=== PATIENT | female | born 1945 | race Caucasian/White ===

== ENCOUNTER 2018-09-29 12:53 | Outpatient (CLI) | payer MEDICARE ==
[~2018-09-29 12:53] MED LIST: Gadobenate Dimeglumine 529 MG/1 ML (20ML VIAL) ONE
--- NOTE | 2018-09-29 17:01 | MRI ---
MRI CERVICAL SPINE: History: M54.12 worsening shoulder and neck pain. Technique: Multiplanar, multisequence noncontrast enhanced MRI images cervical spine obtained. Comparison: 02-26-15 FINDINGS: The spinal cord is unremarkable but no evidence of cord, masses, or lesions. C1-2: Unremarkable. C2-3: Unremarkable. C3-4: Unremarkable. C4-5: There is mild disc desiccation. There is a mild broad based disc osteophyte complex centrally, minimally but not significantly compressing the thecal sac. The neural foramen are patent. C5-6: There is some disc desiccation. There is a broad based disc osteophyte complex centrally result ing in minimal but not significant compression of the thecal sac. The neural foramen are patent. C6-7: Unremarkable except for a subtle left C6-7 paracentral mild disc bulge. No significant thecal s ac or nerve root compression is seen. C7-T1: Unremarkable. IMPRESSION: Minimal midcervical broad based disc bulge and disc desiccation. No significant evidence of central o r neural foraminal narrowing seen. POS: C
--- NOTE | 2018-09-29 18:47 | MRI ---
MRI THORACIC SPINE WITHOUT CONTRAST: 09/29/18 HISTORY: Mid thoracic spine pain. The pain is chronic. Symptoms are worsening. COMPARISON: None. TECHNIQUE: Thoracic spine MRI is performed without intravenous gadolinium administration. Multisequential, multi planar imaging is performed. FINDINGS: Appropriate T1 marrow signal intensity of the thoracic vertebrae. Thoracic spine vertebral body heigh t is maintained. There is no fracture. There is intrinsic T1 heterogeneous signal intensity with asso ciated T2 and STIR hyperintensity at the T8 level. An atypical hemangioma is favored. This lesion is present in 2011 but has slightly increased in size. No evidence of vertebral body fracture. No signif icant STIR hyperintensity to suggest edema or ligamentous injury. The visualized mediastinal structures are unremarkable. There are dependent atelectatic changes in th e lung parenchyma. Visualized solid organs are also unremarkable. The thoracic cord has a normal size and signal intensity. No cord expansion. No cord malacia. No T2 h yperintensity in the cord. The conus medullaris is not included on this exam. Please refer to a lumba r spine MRI from 02/26/15 for details in terms of the conus. T1-T2 through T4-T5, no significant central canal stenosis. T5-T6, small right paracentral disc bulge. No significant central canal stenosis. T6-T7 through T12-L1, no significant central canal stenosis. Throughout the thoracic spine, the neural foramina are patent. IMPRESSION: 1. No significant central canal stenosis or foraminal narrowing. There is degenerative disease a t T5-T6 as described above. 2. Low lying conus medullaris. Refer to previous lumbar spine MRI for further detail. 3. Interval increase in size of an atypical hemangioma at the T8 vertebral body level. POS: [facility]
--- NOTE | 2018-09-29 19:01 | RAD ---
FOUR VIEWS LUMBAR SPINE: 09/29/18 COMPARISON: None. HISTORY: Bilateral lower extremity radiculopathy. FINDINGS: Posterior elements are incomplete at L5 and S1 suggesting prior surgery and/or congenital abnormality . The posterior elements also appear partially incomplete at L4. No anterolisthesis of retrolisthesis is noted on the lateral neutral flexion or extension imaging. No acute fracture. IMPRESSION: Chronic findings as detailed above. No acute findings are seen. POS: [facility]
--- NOTE | 2018-09-29 19:08 | RAD ---
RADIOGRAPH CERVICAL SPINE 6 VIEWS: 09/29/18 Attention Rita in barrera: this is a 6 view study HISTORY: 73-year-old female with cervical radiculopathy, M54.12. TECHNIQUE: Three lateral views in neutral, flexion, and extension. Open mouth, Fuchs, and AP views. FINDINGS: The vertebral body heights are maintained. There is mild disc space narrowing at C3-4 and C4-5. The r est of the disc spaces are maintained. There is a grade I anterolisthesis of C6 on C7 on the neutral lateral view which does not significantly change with flexion or extension. There are minimal or mild degenerative changes at the bilateral atlanto-axial joints. No prevertebral soft tissue swelling. Ra nge of motion during extension is not full. IMPRESSION: 1. Mild discogenic degenerative changes at C4-5 and C5-6. 2. Mild grade I spondylolisthesis at C6-7, presumably due to facet osteoarthrosis, without insta bility. KARRIE [] POS: [facility]
--- NOTE | 2018-09-29 20:18 | MRI ---
MRI LUMBAR SPINE WITH AND WITHOUT CONTRAST: 09/29/18 COMPARISON: 02/26/15 HISTORY: Lumbar radiculopathy, chronic low back pain with bilateral lower extremity radiculopathy. TECHNIQUE: Multiplanar and multisequence MR imaging of the lumbar spine provided with and without contrast. FINDINGS: The sagittal STIR imaging demonstrates no focal area of osseous marrow edema. There is no anterolisthesis or retrolisthesis noted within the lumbar spine. As seen on the prior examination, the filum terminale is thickened and the conus medullaris terminate s abnormally low near the L3-4 level consistent with the provided history of tethered cord. As seen on the prior examination, the posterior elements are incomplete at the L5 and S1 levels which may be on the basis of prior surgery and/or congenital spina bifida. T12-L1: Intervertebral disc height and signal intensity grossly unremarkable. Minimal disc bulge with no central canal or neural foraminal stenosis. Stable small perineural sleeve cyst noted on the righ t. L1-2: No central canal or neural foraminal stenosis. L2-3: There is mild disc space narrowing and disc desiccation with mild disc bulge causing no central canal stenosis. Mild bilateral facet hypertrophy with no significant neural foraminal stenosis on ei ther side. L3-4: Mild bilateral facet hypertrophy. There is disc desiccation and minimal disc bulge with no sign ificant central canal or neural foraminal stenosis. L4-5: There is disc space narrowing and mild disc bulge with no central canal stenosis. There is mild bilateral facet hypertrophy with no significant neural foraminal stenosis. L5-S1: There is disc space narrowing and desiccation with mild disc bulge. No significant central can al stenosis. There is right lateral osteophyte formation. There is mild bilateral neural foraminal st enosis, right greater than left, unchanged when compared to the prior exam. The imaged retroperitoneal structures appear grossly unremarkable. There is fatty infiltration of the filum terminale at the L4 level, a stable finding. Postcontrast imaging is provided, demonstrating no abnormal enhancement involving the contents of the thecal sac, the vertebral bodies, or the intervertebral discs. There has been no appreciable change when compared to the 2015 exam. IMPRESSION: Stable MRI of the lumbar spine with and without contrast as detailed above. POS: [facility]
== END 2018-09-29 12:54 | disposition home or self-care (01) ==
LOC: BICMRI 12:53
PROVIDERS: ATTEND Surgery
DX: M47.22 Other spondylosis with radiculopathy, cervical region (principal); M51.16 Intervertebral disc disorders with radiculopathy, lumbar region; M50.10 Cervical disc disorder with radiculopathy, unspecified cervical region; M43.12 Spondylolisthesis, cervical region; M48.061 Spinal stenosis, lumbar region without neurogenic claudication; M48.07 Spinal stenosis, lumbosacral region; M47.26 Other spondylosis with radiculopathy, lumbar region; M47.814 Spondylosis without myelopathy or radiculopathy, thoracic region
CPT/HCPCS: 72050; 72120; 72141; 72146; 72158; 82565; A9579

== ENCOUNTER 2019-06-21 15:15 | Outpatient (CLI) | payer MEDICARE ==
--- NOTE | 2019-06-21 15:42 | MMO ---
Bilateral MAMMO Bilat Screen [facility]. CLINICAL HISTORY: Patient is 73 years old and is seen for screening. The patient has no family history of breast cancer. The patient has no personal history of cancer. The patient has a history of bilateral Explantation in 2009 - benign - Had saline/silcon implant from 39-63 (). On. VIEWS: The views performed were: bilateral craniocaudal with tomosynthesis and bilateral mediolateral oblique with tomosynthesis. FILMS COMPARED: The present examination has been compared to prior imaging studies performed at [facility] on 02/01/2012, 07/23/2014 and 11/26/2016, and at [facility] on 05/30/2010. MAMMOGRAM FINDINGS: There are scattered fibroglandular densities. There are vascular calcifications seen in both breasts. Nodularity is stable. There are no suspicious masses, suspicious calcifications, or new areas of architectural distortion. IMPRESSION: THERE IS NO MAMMOGRAPHIC EVIDENCE OF MALIGNANCY. A ROUTINE FOLLOW-UP MAMMOGRAM IN 1 YEAR IS RECOMMENDED. THE RESULTS OF THIS EXAM WERE SENT TO THE PATIENT. ACR BI-RADS Category 2 - Benign finding MAMMOGRAPHY NOTE: 1. A negative mammogram report should not delay a biopsy if a dominant of clinically suspicious mass is present. 2. Approximately 10% to 15% of breast cancers are not detected by mammography. 3. Adenosis and dense breasts may obscure an underlying neoplasm. Reported by: ALONZO GRAVES MD Electonically Signed: [id number]
== END 2019-06-21 15:16 | disposition home or self-care (01) ==
LOC: BICMAMMO 15:15
PROVIDERS: ATTEND Family Medicine
DX: Z12.31 Encounter for screening mammogram for malignant neoplasm of breast (principal)
CPT/HCPCS: 77063; 77067

== ENCOUNTER 2020-03-21 09:52 | Observation (INO) | payer MEDICARE ==
[2020-03-21 10:13] LABS: #Basophils 0.1 thou/uL (0.0-0.2); #Eosinphils 0.3 thou/uL (0.0-0.7); #Lymphocytes 3.1 thou/uL (1.20-3.40); #Monocytes 0.5 thou/uL (0.11-0.59); #Neutrophils 3.2 thou/uL (1.40-6.50); %Basophils 1.1 % (0.0-1.0); %Eosinophils 3.9 % (0.0-10.0); %Lymphocytes 42.9 % (21.0-51.0); %Monocytes 7.2 % (0.0-10.0); %Neutrophils 44.9 % (42.0-75.0); Hemoglobin 13.6 g/dL (12.0-16.0); Mean Corpuscular HGB CONC 31.9 g/dL (32.0-36.0); Mean Corpuscular Hemoglobin 31.3 pg (27.0-31.0); Mean Corpuscular Volume 98.1 fL (78.0-98.0); Mean Platelet Volume 6.7 fL (7.4-10.4); Platelet Count 349 thou/uL (130-400); RBC Distribution Width 12.3 % (11.5-14.5); Red Blood Cell (RBC) Count 4.35 mill/uL (4.20-5.40); White Blood Cell (WBC) Count 7.1 thou/uL (4.8-10.8)
[2020-03-21] MEDS ORDERED: Nitroglycerin 0.4 MG TAB 1 EACH ONE (10:23)
[2020-03-21] MEDS ORDERED: Aspirin Chewable 81 MG TAB ONE (10:23)
[2020-03-21 10:35] LABS: ALT (SGPT) 11 U/L (8-55); AST (SGOT) 16 U/L (5-34); Albumin 4.5 g/dL (3.4-4.8); Alkaline Phosphatase 50 U/L (40-110); Anion Gap 14 mmol/L (10-20); BUN (Urea Nitrogen) 21 mg/dL (9.8-20.1); Bilirubin, Total 0.5 mg/dL (0.2-1.2); Calc. Creatinine Clearance 0 mL/min (70-130); Calcium 9.9 mg/dL (7.8-10.44); Carbon Dioxide 26 mmol/L (23-31); Chloride 104 mmol/L (98-107); Estimated GFR-MDRD 41; Globulin 2.9 g/dL (2.4-3.5); Glucose 99 mg/dL (83-110); Potassium 3.7 mmol/L (3.5-5.1); Protein, Total 7.4 g/dL (6.0-8.3); Sodium 140 mmol/L (136-145)
[2020-03-21 12:27] VITALS: BMI 22.6
--- NOTE | 2020-03-21 13:25 | RAD ---
PORTABLE CHEST ONE VIEW: 03/21/20 at 10:12 a.m. HISTORY: Chest pain. COMPARISON: 09/12/17. The heart size is normal. The aorta is tortuous. The lungs are well expanded without lobar consolidat ion, pneumothoraces, or pleural effusions. There are postop changes of left rotator cuff repair. IMPRESSION: No acute process. POS: RAKELA
[2020-03-21] MEDS ORDERED: Ondansetron ODT 4 MG TAB PO PRN (14:09)
[2020-03-21] MEDS ORDERED: Acetaminophen 500 MG TAB PO PRN (14:09)
[2020-03-21] MEDS ORDERED: Fluticasone Propionate Nasal Spray 16 gm Bottle NASAL PRN (14:09)
[2020-03-21] MEDS ORDERED: Ondansetron PF 4 MG/2 ML Vial IVP PRN (14:09)
[2020-03-21] MEDS ORDERED: hydrALAZINE 20 MG/ML VIAL SLOW IVP PRN (14:09)
[2020-03-21 14:27] LABS: Troponin I 0.011 ng/mL (< 0.028)
[2020-03-21] MEDS: Sodium Chloride 0.9% 1,000 ML IV SCH (15:35)
[2020-03-21] MEDS ORDERED: Communication Order-Pharmacy FS SCH (16:30)
[2020-03-21 16:32] LABS: Troponin I Less than 0.010 ng/mL (< 0.028)
--- NOTE | 2020-03-21 17:14 | CON ---
DATE OF CONSULTATION: 03/21/2020 REASON FOR CONSULTATION: Chest pain. HISTORY OF PRESENT ILLNESS: Ms. Pradhan is a very pleasant 74-year-old white female, who comes to the hospital for chest pain. She has been noticing worsening chest pain for the past three months. She has noticed it for 3 months now; however, has been getting a lot more frequent recently and it is now accompanied with shortness of breath, especially when she exerts herself. She has a history of fibromyalgia, but she knows her chronic pain as she has had this for 30 years and she does not feel that this is related to her fibromyalgia. She is currently pain free. Toward the end of my evaluation, on my physical exam, she started having chest tightness again. So far, her troponins have been negative. PAST MEDICAL HISTORY: 1. Fibromyalgia. 2. Hyperlipidemia. PAST SURGICAL HISTORY: 1. Back surgery. 2. Eye surgery. 3. Left rotator cuff repair. 4. Breast implants, status post removal. 5. Left knee surgery. 6. Right heel surgery. 7. Appendectomy. SOCIAL HISTORY: 1. Social alcohol use. 2. No drug use. No tobacco. OUTPATIENT MEDICATIONS: 1. Trazodone 100 mg a day in the evening. 2. Naproxen 500 mg twice a day. 3. Vitamin D3. ALLERGIES: NO KNOWN DRUG ALLERGIES. REVIEW OF SYSTEMS: A 12-point review of systems was done and was all negative unless stated in the history of present illness. PHYSICAL EXAMINATION: VITAL SIGNS: Temperature 98.4, pulse 71, respiratory rate 14, saturating 99% on room air, and blood pressure 140/65. GENERAL: Awake, alert, and oriented x3. No distress. HEENT: Normocephalic and atraumatic. NECK: Supple. LUNGS: Clear. CARDIOVASCULAR: S1 and S2. No S3 or S4. No murmurs. ABDOMEN: Soft. Positive bowel sounds. EXTREMITIES: No edema. SKIN: Warm and dry. LABORATORY DATA: Laboratory work was reviewed. CBC with a white count of 7.1, hemoglobin of 13, hematocrit of 42, and platelet count of 349. Chemistries were reviewed, only apparent is BUN of 21, creatinine 1.28, but GFR is 41. Troponin is negative x2. BNP of 31. Normal electrolytes. EKG was reviewed. ASSESSMENT: 1. Ongoing chest pain. 2. History of fibromyalgia. 3. Shortness of breath with exertion. PLAN: 1. At this point, she has ongoing chest pain. Even if her stress tests were negative, she will most likely continue to have pain and will need highest level of risk stratification. I would recommend proceeding with a heart catheterization at this point. I spoke with Ms. Pradhan at length about the risks and benefits of the procedure. Risks included, but not limited to stroke, [place], , bleeding and need for blood transfusion, limb loss, organ loss. She verbalized understanding of this and agrees to proceed. Her daughter is in the room with her, , and she also agrees to proceed. We spoke about conscious sedation as well. We also spoke about drug-eluting versus bare-metal stenting, and we will do a femoral approach. 2. Continue plans to do echocardiogram. 3. We will cancel stress test. 4. Further recommendations per results of coronary angiogram, which we will perform tomorrow morning. Thank you for letting us participate in the care of this patient. We will follow. Job ID: [id number]
--- NOTE | 2020-03-21 18:35 | HP ---
PRIMARY CARE PROVIDER: Tristen Pichardo MD CHIEF COMPLAINT: Chest pain and shortness of breath. HISTORY OF PRESENT ILLNESS: This is a 74-year-old female, who presents to [facility] Emergency Department complaining of progressive chest pain with associated shortness of breath over the last 2 weeks. Initially noticed almost 3 months prior to this evaluation. The patient states the frequency and duration of symptoms has progressed in the last 2 weeks, lasting from 2 minutes up to 5-6 minutes several times per week. The patient states she has to stop, catch her breath and rest, which seems to relieve her symptoms. The patient states she also does breathing from her abdominal region, which alleviates her symptoms. The patient denied any direct trauma, injury, travel history, cough, congestion, fever, chronic lung conditions, or recent pneumonia. The patient denies any known history of coronary artery disease and states her father had coronary artery disease with a mild myocardial infarction in his 40s. The patient states she is normally very active, working in a [employer] and typically functional of all activities of daily living. The patient denied any change to her chronic medication regimen, history of hypothyroidism, or history of atrial dysrhythmia. In the emergency room, the patient underwent general evaluation including chest imaging and EKG evaluation. The patient received nitroglycerin 0.4 mg sublingually x1 in addition to aspirin 324 mg. The patient was referred to the Hospitalist Service for further evaluation. PAST MEDICAL HISTORY: 1. Fibromyalgia, controlled over 30+ years. 2. Hyperlipidemia. 3. Costochondritis. PAST SURGICAL HISTORY: 1. Status post disk repair. 2. Status post left rotator cuff repair. 3. Status post breast implants with subsequent removal. 4. Status post left knee surgery. 5. Status post right heel surgery. 6. Status post appendectomy. CURRENT MEDICATIONS: 1. Vitamin C 1000 mg p.o. daily. 2. Calcium carbonate 1200 mg p.o. daily. 3. Zyrtec 10 mg p.o. daily. 4. Vitamin B12 with folic acid 5000 units p.o. daily. 5. Flonase 1 spray in each naris daily. 6. Multivitamin 1 tablet p.o. daily. 7. Naproxen 500 mg p.o. b.i.d. 8. Trazodone 100 mg p.o. at bedtime. ALLERGIES: NO KNOWN DRUG ALLERGIES. FAMILY HISTORY: Father with history of myocardial infarction in his 40s with subsequent CABG in his 50s. SOCIAL HISTORY: Single. Resides in [place], [place]. Employed working in the [employer]. No alcohol, tobacco, or illicit drug use. Functional of all activities of daily living. REVIEW OF SYSTEMS: CONSTITUTIONAL: Negative for weight loss or gain, ability to conduct usual activities. SKIN: Negative for rash, itching. EYES: Negative for double vision, pain. ENT/MOUTH: Negative for nose bleeding, neck stiffness, pain, tenderness. CARDIOVASCULAR: Negative for palpitations, dyspnea on exertion, orthopnea. RESPIRATORY: Negative for shortness of breath, wheezing, cough, hemoptysis, fever or night sweats. GASTROINTESTINAL: Negative for poor appetite, abdominal pain, heartburn, nausea, vomiting, constipation, or diarrhea. GENITOURINARY: Negative for urgency, frequency, dysuria, nocturia. MUSCULOSKELETAL: Negative for pain, swelling. NEUROLOGIC/PSYCHIATRIC: Negative for anxiety, depression. ALLERGY/IMMUNOLOGIC: Negative for skin rash, bleeding tendency. Otherwise negative except as stated per HPI. PHYSICAL EXAMINATION: VITAL SIGNS: On admission, blood pressure 140/65, pulse 71, respiratory rate 14, temperature 98.4 degrees Fahrenheit, O2 saturation 99% on room air. GENERAL APPEARANCE: This is a 74-year-old female, alert and oriented x3, pleasant, responsive, smiling, in no acute distress. HEENT: Pupils are equal, round, reactive to light and accommodation. Extraocular muscles are intact. No scleral icterus. No conjunctival injection. Nares patent. OP is clear. Teeth in good repair. NECK: Supple. No cervical adenopathy. No thyromegaly. No carotid bruits. No JVD appreciated. Cervical spine with full active and passive range of motion. No meningeal signs noted. CHEST: Lungs are clear to auscultation bilaterally. CARDIOVASCULAR EXAM: S1, S2 without noted murmur, rub, or gallop. ABDOMEN: Rounded, soft, nontender, and nondistended. Bowel sounds are positive in all 4 quadrants. There is no hepatosplenomegaly. No abdominal bruits. No rebound or guarding appreciated. EXTREMITIES: Warm and dry with fair turgor. No clubbing, cyanosis, or asymmetric edema appreciated. Pulses palpable distally at the dorsalis pedis, posterior tibial, and popliteal arteries bilaterally. Capillary refill less than 2 seconds. NEUROLOGIC: Cranial nerves 2 through 12 are grossly intact. No focal or lateralizing signs appreciated. PERTINENT LABORATORY AND X-RAY FINDINGS: Sodium 140, potassium 3.7, chloride 104, CO2 of 26, BUN 21, creatinine 1.28, estimated GFR 41, glucose 99, calcium 9.9. LFTs within normal limits. Troponin I negative x1. BNP 32. CBC within normal limits. Portable chest x-ray dated 03/21/2020, showed no acute cardiopulmonary process. EKG dated 03/21/2020 by my interpretation shows sinus mechanism with heart rates in the 80s. Attenuated R-waves noted in the precordial leads. Left bundle branch block pattern noted. Normal axis. ASSESSMENT AND PLAN: 1. Chest pain. The patient will be observed on the telemetry unit. We will proceed with exercise Cardiolite stress testing in the a.m. Check fasting lipid profile. Continue cardiac monitoring. Consult Cardiology Service for any further recommendations. Check TSH and magnesium level in the a.m. 2. Dyspnea. Exact etiology unclear. Check 2D transthoracic echocardiogram for ejection fraction and valvular function. Continue pulse oximetry monitoring. 3. Chronic kidney disease, stage 3. Continue intravenous normal saline at 75 mL/h. Avoid nephrotoxic agents and limit contrast exposure. Repeat creatinine in the a.m. 4. Costochondritis. Continue supportive management. Naproxen 500 mg p.o. b.i.d. 5. Prophylaxis. SCDs while in bed. Pepcid 20 mg p.o. b.i.d. 6. Code status is full. Surrogate medical decision maker is the patient's daughter. Job ID: [id number]
[2020-03-21] MEDS: Famotidine 20 MG TAB PO SCH (20:57)
[2020-03-21] MEDS: Naproxen 500 MG TAB PO SCH (20:57)
[2020-03-21] MEDS ORDERED: traZODone HCl 50 MG TAB PO SCH (21:00)
[2020-03-22] MEDS: Sodium Chloride 0.9% 1,000 ML IV SCH (04:21)
[2020-03-22 05:05] LABS: Eosinophils 5 % (0-10); Hemoglobin 12.1 g/dL (12.0-16.0); Lymphocytes 44 % (21-51); MDiff Complete? YES; Mean Corpuscular HGB CONC 31.3 g/dL (32.0-36.0); Mean Corpuscular Volume 99.1 fL (78.0-98.0); Mean Platelet Volume 6.9 fL (7.4-10.4); Monocytes 11 % (0-10); Neutrophil 40 % (42-75); Platelet Count 291 thou/uL (130-400); Platelet Morphology Comment Appears Adequate; RBC Distribution Width 12.2 % (11.5-14.5)
[2020-03-22 05:21] LABS: Anion Gap 10 mmol/L (10-20); BUN (Urea Nitrogen) 16 mg/dL (9.8-20.1); Calc. Creatinine Clearance 47 mL/min (70-130); Calcium 8.7 mg/dL (7.8-10.44); Carbon Dioxide 24 mmol/L (23-31); Cardiac Risk 3.5 (Less than 4.5); Chloride 111 mmol/L (98-107); Cholesterol 208 mg/dl (< 200 Desired); Estimated GFR-MDRD 58; Glucose 95 mg/dL (83-110); HDL Cholesterol 59 mg/dL (>60 Neg Risk); LDL Cholesterol, Calculated 135 mg/dL; Sodium 141 mmol/L (136-145); Triglycerides 71 mg/dL (Less than 150)
[2020-03-22] MEDS: Naproxen 500 MG TAB PO SCH (05:43)
[2020-03-22] MEDS: Famotidine 20 MG TAB PO SCH (05:43)
[2020-03-22] MEDS ORDERED: Loratadine 10 MG TAB PO SCH (09:00)
[2020-03-22] MEDS ORDERED: Fentanyl 100 MCG/2 ML VIAL ONE (10:29)
[2020-03-22] MEDS ORDERED: Midazolam HCl 2 mg/2 ml Vial ONE (10:29)
[2020-03-22] MEDS ORDERED: Iopamidol 370 76% 100 ML VIAL ONE (10:49)
[2020-03-22] MEDS ORDERED: Acetaminophen/Codeine 30-300mg Tablet PO PRN (11:01)
[2020-03-22] MEDS ORDERED: Sodium Chloride 0.9% 200 ML IV PRN (11:01)
[2020-03-22] MEDS ORDERED: Sodium Chloride 0.9% 500 ML IV SCH (11:15)
[2020-03-22] MEDS ORDERED: Iopamidol-370 76% 500 ML 1 ML ONE (12:43)
--- NOTE | 2020-03-22 14:16 | CT ---
CT chest with IV contrast HISTORY: Chest pain. Recent heart catheterization. FINDINGS: Lungs are well-inflated. No focal mass, fluid collection, pneumothorax, or pleural fluid. T iny nonspecific subpleural nodule noted at the left lateral lung base. No mediastinal adenopathy evident. Mild arterial calcification. Bovine origin of the great vessels at the aortic arch. Postoperative changes left shoulder partially visualized. Within the partially visualized upper abdomen, contrast material in the renal collecting systems from prior catheterization procedure. A flat fluid collection projecting anterior to the right side of the liver represents extension of the incompletely distended gallbladder fundus. IMPRESSION: No acute abnormalities of the chest are demonstrated. Atherosclerosis.
[2020-03-22 15:32] VITALS: BP 148/65; TEMP 97.7
--- NOTE | 2020-03-23 01:45 | DIS ---
DATE OF ADMISSION: 03/21/2020 DATE OF DISCHARGE: 03/22/2020 DISCHARGE DIAGNOSES: 1. Chest pain, musculoskeletal, noncardiac. 2. Fibromyalgia, chronic. 3. Hyperlipidemia. 4. Elevated blood pressure. 5. Chronic kidney disease, stage 3. 6. Costochondritis. CONSULTATIONS: Dr. Sauceda with Cardiology Service. PERTINENT LABORATORY AND X-RAY FINDINGS: Creatinine ranged between 0.94 to 1.28, estimated GFR ranged between 41 to 58. Troponin I negative x3. BNP 32. Total cholesterol 208, triglyceride 71, HDL 59, LDL 135. TSH 0.95. CBC within normal limits. Portable chest x-ray dated 03/21/2020, showed no acute cardiopulmonary process. Cardiac catheterization dated 03/22/2020, showed normal findings. Ejection fraction estimated 60%. 2D transthoracic echocardiogram dated 03/22/2020, showed ejection fraction of 60% to 65%. Grade 1/3 diastolic dysfunction. Mild mitral regurgitation. Aortic valve sclerosis without stenosis. CT of the chest dated 03/22/2020, showed no acute process. HOSPITAL COURSE: The patient was observed on the telemetry unit after presenting with chest pain. The patient underwent serial cardiac biomarkers x3, which were negative, proceeding to cardiac catheterization at the recommendation of Cardiology Service. Left heart catheterization was performed 03/22/2020, showing normal coronary anatomy with estimated ejection fraction of 60%. The patient underwent 2D transthoracic echocardiogram and CT of the chest, which were negative studies. The patient's presentation consistent with chest wall/musculoskeletal etiology. Recommendations are for general supportive management. The patient was noted with elevated blood pressure. However, the current recommendations are to monitor on an outpatient basis and to discuss with her primary care provider in followup. I have examined the patient at the time of discharge and discussed followup instructions. The patient verbalized understanding and agreement ready for discharge 03/22/2020. DISCHARGE MEDICATIONS: 1. Vitamin C 1000 mg p.o. daily. 2. Calcium carbonate 1200 mg p.o. daily. 3. Zyrtec 10 mg p.o. daily. 4. Vitamin B12/folic acid 5000 units p.o. daily. 5. Flonase 1 spray in each naris daily. 6. Multivitamin 1 tablet p.o. daily. 7. Naproxen 500 mg p.o. b.i.d. 8. Trazodone 100 mg p.o. at bedtime. FOLLOWUP: The patient may follow up with Dr. Tristen Pichardo within 7 days of discharge. CONDITION ON DISCHARGE: Stable. ACTIVITY: Ad-belkis. DIET: Regular. CODE STATUS: Full. DISPOSITION: Home on 03/22/2020. Job ID: [id number]
[2020-03-23] MEDS ORDERED: Famotidine 20 MG TAB PO SCH (09:00)
== END 2020-03-22 16:04 | disposition home or self-care (01) ==
LOC: ERS 09:52 → 2NO 10:53
PROVIDERS: ADMIT Family Medicine; ATTEND Family Medicine
PROC: 4A023N7 Measurement of Cardiac Sampling and Pressure, Left Heart, Percutaneous Approach (ICD-10-PCS; principal; 2020-03-22)
PROC: B2111ZZ Fluoroscopy of Multiple Coronary Arteries using Low Osmolar Contrast (ICD-10-PCS; 2020-03-22)
DX: R07.89 Other chest pain (principal); M79.7 Fibromyalgia; E78.5 Hyperlipidemia, unspecified; I12.9 Hypertensive chronic kidney disease with stage 1 through stage 4 chronic kidney disease, or unspecified chronic kidney disease; N18.3 Chronic kidney disease, stage 3 (moderate); M94.0 Chondrocostal junction syndrome [Tietze]; I70.90 Unspecified atherosclerosis; R06.09 Other forms of dyspnea; Z79.1 Long term (current) use of non-steroidal anti-inflammatories (NSAID); Z79.899 Other long term (current) drug therapy
CPT/HCPCS: 71045; 71260; 80048; 80053; 80061; 83735; 83880; 84443; 84484 ×2; 85007; 85025; 85027; 93005; 93306; 93458; 94760 ×2; 99285; C1769; G0378 ×3; 36415; 99152; J1644; J2250; J3010; Q9967

== ENCOUNTER 2021-10-21 12:05 | Outpatient (CLI) | payer MEDICARE | END 2021-10-21 12:06 | disposition home or self-care (01) | LOC: BICMAMMO 12:05 | PROVIDERS: ATTEND Family Medicine | DX: Z12.31 Encounter for screening mammogram for malignant neoplasm of breast (principal); Z98.890 Other specified postprocedural states | CPT/HCPCS: 77063; 77067 ==

== ENCOUNTER 2022-10-28 14:08 | Outpatient (CLI) | payer MEDICARE | END 2022-10-28 14:09 | disposition home or self-care (01) | LOC: LABBT 14:08 | PROVIDERS: ATTEND Orthopaedic Surgery Hand Surgery | DX: Z01.812 Encounter for preprocedural laboratory examination (principal); M65.311 Trigger thumb, right thumb | CPT/HCPCS: 93005; 93010 ==

== ENCOUNTER 2023-01-04 15:01 | Emergency (ER) | payer OTHER ==
[2023-01-04] MEDS ORDERED: HYDROcodone/Acetaminophen 5/325 mg Tablet ONE (16:20)
[2023-01-04] MEDS ORDERED: Ibuprofen 800 MG TAB ONE (16:20)
== END 2023-01-04 17:57 | disposition home or self-care (01) ==
LOC: ERS 15:01
DX: S42.341A Displaced spiral fracture of shaft of humerus, right arm, initial encounter for closed fracture (principal); W01.10XA Fall on same level from slipping, tripping and stumbling with subsequent striking against unspecified object, initial encounter; Y92.009 Unspecified place in unspecified non-institutional (private) residence as the place of occurrence of the external cause
CPT/HCPCS: 29105

== ENCOUNTER 2023-08-19 12:59 | Outpatient (CLI) | payer OTHER | END 2023-08-19 13:00 | disposition home or self-care (01) | LOC: BICCT 12:59 | PROVIDERS: ATTEND Orthopaedic Surgery | DX: S42.344A Nondisplaced spiral fracture of shaft of humerus, right arm, initial encounter for closed fracture (principal); S42.301A Unspecified fracture of shaft of humerus, right arm, initial encounter for closed fracture ==

== ENCOUNTER 2023-09-27 10:27 | Observation (INO) | payer OTHER ==
[2023-09-27] MEDS ORDERED: fentaNYL 50 mcg/mL 1 mL Vial ONE ×2 (11:31→12:26)
[2023-09-27] MEDS ORDERED: Midazolam HCl 2 mg/2 ml Vial ONE (11:31)
[2023-09-27] MEDS ORDERED: Bupivacaine PF 0.5% 30 ML VIAL ONE (11:32)
[2023-09-27] MEDS ORDERED: PROPOFOL 20 ML ONE (12:26)
[2023-09-27] MEDS ORDERED: Sodium Chloride 0.9% 100 ML ONE (12:37)
[2023-09-27] MEDS ORDERED: CEFAZOLIN 2 GM VIAL ONE (12:37)
[2023-09-27] MEDS ORDERED: Dexamethasone 20 MG/5 ML VIAL ONE (13:10)
[2023-09-27] MEDS ORDERED: Bupivacaine HCl 0.5%/Epinephrine 1:200,000/PF 30 ml Vial ONE (13:10)
[2023-09-27] MEDS ORDERED: PROPOFOL 200 MG/20 ML VIAL ONE (13:10)
[2023-09-27] MEDS ORDERED: Lidocaine 1% PF 5 ML VIAL ONE ×2 (13:10→13:45)
[2023-09-27] MEDS ORDERED: Ondansetron PF 4 MG/2 ML Vial ONE ×2 (13:10→13:45)
[2023-09-27] MEDS ORDERED: Ondansetron HCl/PF 4 MG/2 ML Vial IVP PRN (13:44)
[2023-09-27] MEDS ORDERED: Meperidine HCl/PF 25 MG/ML VIAL SLOW IVP PRN (13:44)
[2023-09-27] MEDS ORDERED: Promethazine HCl 25 MG/ML VIAL IM PRN (13:44)
[2023-09-27] MEDS ORDERED: PACU-Morphine 4MG/ML VIAL SLOW IVP PRN (13:44)
[2023-09-27] MEDS ORDERED: Dexamethasone 4 mg/ml Vial ONE (13:45)
[2023-09-27] MEDS ORDERED: Rocuronium Bromide 10 MG/ML (10ML VIAL) ONE (13:45)
[2023-09-27] MEDS ORDERED: Calcium Carbonate 500 MG ChewTAB PO PRN (15:46)
[2023-09-27] MEDS ORDERED: Bisacodyl 5 MG TAB PO PRN (15:46)
[2023-09-27] MEDS ORDERED: HYDROcodone/Acetaminophen 5/325 mg Tablet PO PRN (15:46)
[2023-09-27] MEDS ORDERED: Acetaminophen 325 MG TAB PO PRN (15:46)
[2023-09-27] MEDS ORDERED: Ondansetron PF 4 MG/2 ML Vial IVP PRN (15:46)
[2023-09-27] MEDS ORDERED: Ondansetron ODT 4 MG TAB PO PRN (15:46)
[2023-09-27 17:42] VITALS: BMI 20.6
[2023-09-27] MEDS: CEFAZOLIN 2 GM in Sodium Chloride 0.9% 100 ML IVPB SCH (20:35)
[2023-09-27] MEDS: Famotidine 20 MG TAB PO SCH (20:36)
[2023-09-27] MEDS: HYDROcodone/Acetaminophen 5/325 mg Tablet PO PRN (20:42)
[2023-09-27] MEDS: Famotidine/PF 20 mg/2ml Vial SLOW IVP SCH (23:06)
[2023-09-28] MEDS: CEFAZOLIN 2 GM in Sodium Chloride 0.9% 100 ML IVPB SCH ×2 (04:06→10:58)
[2023-09-28] MEDS: HYDROcodone/Acetaminophen 5/325 mg Tablet PO PRN (04:07)
[2023-09-28 05:02] LABS: #Monocytes 1.1 thou/uL (0.11-0.59); #Neutrophils 7.5 thou/uL (1.40-6.50); %Basophils 0.2 % (0.0-1.0); %Eosinophils 0.2 % (0.0-10.0); %Lymphocytes 20.4 % (21.0-51.0); %Monocytes 10.2 % (0.0-10.0); %Neutrophils 68.7 % (42.0-75.0); Hematocrit 33.9 % (36.0-47.0); Hemoglobin 11.2 g/dL (12.0-16.0); Mean Corpuscular Hemoglobin 31.5 pg (27.0-31.0); Mean Corpuscular Volume 95.2 fl (78.0-98.0); Platelet Count 277 10x3/uL (130-400); RBC Distribution Width 12.6 % (11.5-14.5); Red Blood Cell (RBC) Count 3.56 mill/uL (4.20-5.40); White Blood Cell (WBC) Count 10.9 10x3/uL (4.8-10.8)
[2023-09-28] MEDS: Famotidine 20 MG TAB PO SCH (08:50)
[2023-09-28 09:47] VITALS: BP 131/60; TEMP 97.4
[2023-09-28] MEDS: Famotidine/PF 20 mg/2ml Vial SLOW IVP SCH (10:35)
== END 2023-09-28 12:00 | disposition home or self-care (01) ==
LOC: SDC 10:27 → MSONC 15:46
PROVIDERS: ADMIT Orthopaedic Surgery; ATTEND Orthopaedic Surgery
PROC: 0PSF04Z Reposition Right Humeral Shaft with Internal Fixation Device, Open Approach (ICD-10-PCS; principal; 2023-09-27)
DX: S42.341A Displaced spiral fracture of shaft of humerus, right arm, initial encounter for closed fracture (principal); Z79.84 Long term (current) use of oral hypoglycemic drugs; Z79.899 Other long term (current) drug therapy; X58.XXXA Exposure to other specified factors, initial encounter
CPT/HCPCS: 24515; 73060; 85025; 97535; C1713 ×6; J3010; 36415; J1100; J2250; J2405; J2704; J3490; S0020

== ENCOUNTER 2023-10-01 11:13 | Emergency (ER) | payer OTHER ==
[2023-10-01 11:48] LABS: #Basophils 0.1 thou/uL (0.0-0.2); #Eosinphils 0.4 thou/uL (0.0-0.7); #Monocytes 0.8 thou/uL (0.11-0.59); #Neutrophils 4.4 thou/uL (1.40-6.50); %Basophils 0.5 % (0.0-1.0); %Eosinophils 4.1 % (0.0-10.0); %Lymphocytes 42.7 % (21.0-51.0); %Monocytes 8.2 % (0.0-10.0); %Neutrophils 44.2 % (42.0-75.0); Hematocrit 33.4 % (36.0-47.0); Hemoglobin 11.2 g/dL (12.0-16.0); Mean Corpuscular HGB CONC 33.5 g/dL (32.0-36.0); Mean Corpuscular Hemoglobin 31.1 pg (27.0-31.0); Mean Corpuscular Volume 92.8 fl (78.0-98.0); Mean Platelet Volume 8.9 fL (7.4-10.4); Platelet Count 402 10x3/uL (130-400); RBC Distribution Width 12.5 % (11.5-14.5)
[2023-10-01 12:01] LABS: INR-International Normal Ratio 1.1; Prothrombin Time 14.2 sec (12.0-14.7)
[2023-10-01 12:18] LABS: ALT (SGPT) 8 U/L (8-55); AST (SGOT) 19 U/L (5-34); Albumin 3.6 g/dL (3.4-4.8); Alkaline Phosphatase 40 U/L (40-110); Anion Gap 16 mmol/L (10-20); BUN (Urea Nitrogen) 13 mg/dL (9.8-20.1); Bilirubin, Total 0.8 mg/dL (0.2-1.2); Calc. Creatinine Clearance 0 mL/min (70-130); Calcium 9.5 mg/dL (7.8-10.44); Carbon Dioxide 22 mmol/L (23-31); Chloride 103 mmol/L (98-107); Estimated GFR 68; Globulin 2.8 g/dL (2.4-3.5); Glucose 147 mg/dL (83-110); Potassium 3.2 mmol/L (3.5-5.1); Protein, Total 6.4 g/dL (5.8-8.1); Sodium 138 mmol/L (136-145)
[2023-10-01 14:59] LABS: Lactic Acid 1.6 mmol/L (0.5-2.2)
[2023-10-01] MEDS ORDERED: Sodium Chloride 0.9% 100 ML ONE (15:15)
[2023-10-01] MEDS ORDERED: Cefepime 2 GM VIAL ONE (15:15)
[2023-10-01] MEDS ORDERED: HYDROcodone/Acetaminophen 10/325 mg Tablet ONE (15:40)
[2023-10-01] MEDS ORDERED: Potassium Chloride 20 MEQ TAB ONE (15:47)
== END 2023-10-01 15:55 | disposition home or self-care (01) ==
LOC: ERS 11:13
DX: Z48.01 Encounter for change or removal of surgical wound dressing (principal); E87.6 Hypokalemia
CPT/HCPCS: 36415; 80053; 83605; 85025; 85610; 85730; 87040; 93005; 94760; 96361; 96365; J0692; J3490

== ENCOUNTER 2023-12-17 10:31 | Outpatient (CLI) | payer OTHER | END 2023-12-17 10:32 | disposition home or self-care (01) | LOC: BICRAD 10:31 | PROVIDERS: ATTEND Family Medicine | DX: S83.8X2A Sprain of other specified parts of left knee, initial encounter (principal); R26.89 Other abnormalities of gait and mobility; M16.12 Unilateral primary osteoarthritis, left hip ==

== ENCOUNTER 2024-01-07 09:45 | Outpatient (CLI) | payer OTHER | END 2024-01-07 09:46 | disposition home or self-care (01) | LOC: BICMAMMO 09:45 | PROVIDERS: ATTEND Family Medicine | DX: Z12.31 Encounter for screening mammogram for malignant neoplasm of breast (principal); Z13.820 Encounter for screening for osteoporosis; M81.0 Age-related osteoporosis without current pathological fracture; M85.851 Other specified disorders of bone density and structure, right thigh; M85.852 Other specified disorders of bone density and structure, left thigh; Z78.0 Asymptomatic menopausal state; Z98.82 Breast implant status; Z98.890 Other specified postprocedural states | CPT/HCPCS: 77063; 77067; 77080 ==

== ENCOUNTER 2025-06-13 12:44 | Outpatient (CLI) | payer OTHER | END 2025-06-13 12:45 | disposition home or self-care (01) | LOC: MRI 12:44 | PROVIDERS: ATTEND Family Medicine | DX: M47.26 Other spondylosis with radiculopathy, lumbar region (principal); M47.812 Spondylosis without myelopathy or radiculopathy, cervical region; R42 Dizziness and giddiness; M48.02 Spinal stenosis, cervical region; M50.33 Other cervical disc degeneration, cervicothoracic region; M48.03 Spinal stenosis, cervicothoracic region; D17.79 Benign lipomatous neoplasm of other sites; M50.321 Other cervical disc degeneration at C4-C5 level; Z98.890 Other specified postprocedural states | CPT/HCPCS: 72156; 72158 ==

== ENCOUNTER 2025-07-11 11:31 | Outpatient (CLI) | payer OTHER | END 2025-07-11 11:32 | disposition home or self-care (01) | LOC: BICRAD 11:31 | PROVIDERS: ATTEND Family Medicine | DX: S39.012D Strain of muscle, fascia and tendon of lower back, subsequent encounter (principal); M51.369 Other intervertebral disc degeneration, lumbar region without mention of lumbar back pain or lower extremity pain; M41.9 Scoliosis, unspecified; M47.816 Spondylosis without myelopathy or radiculopathy, lumbar region; M51.379 Other intervertebral disc degeneration, lumbosacral region without mention of lumbar back pain or lower extremity pain; Z98.890 Other specified postprocedural states | CPT/HCPCS: 72100 ==